=== PATIENT | male | born 1980 | race Caucasian/White ===

== ENCOUNTER 2024-12-02 14:01 | Outpatient (AMB) | payer OTHER, MEDICAID, SELFPAY ==
--- NOTE | 2024-12-02 14:04 | MHC.OFFVIS ---
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 Patient has fatigue and difficulty focusing, Long standing issue of excessive sleepiness even with adequate sleep at night. Also reports RLS with symptoms occuring two nights a week. Has had multiple sleep studies that do not show any sleep apnea, but Periodic Limb Movements were noted. Allergies No Known Allergies Allergy (Verified 12/02/24 14:15) HPI Comments Details: 44 year old male with h/o ADHD referred to us for evaluation of hypersomnia by his PCP, Dr. Waterman. He has completed 2 HSTs one in 2020 and one in 2023, both showed no evidence for PATRICA. He was diagnosed with ADD/ADHD and tried on Adderall and this was not effective, he lacks focus, lacks attention to tasks and notices low energy levels despite getting 12 hours of sleep. He goes to bed at 8pm and wakes up at 9am. PSG Aug 2023, no evidence of patrica, however he did have RLS, and PLMD, treated with gabapentin 100mg PO daily. 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 08/2024 Labs are wnl at [facility] [place], and he is not taking any otc supplements. He was tried on Dextro amphetamine 5mg/ to 15mg IR and ER both formulas, and ran out of this medication recently. He does not wish to continue this medication as he did not see any difference, he continues to lack focus, loses concentration easily and can't stay on tasks as he gets distracted easily, then starts another task but doesn't complete any of them. He also feels he is very forgetful, he walks into a room and then forgets why he walked into the room. He aslo tried Atomoxetine - Strattera, and had terrible side effects, like sweating, jittery, pre-ejaculation. He rarely has palpitations and anxiety attacks now as an adult but as a child it was terrible and he managed it with exercise and leisurely activities. He states he has experienced narcoleptic disorders about 3 weeks ago watching a basketball game at 3pm he was laying on the couch and fell asleep for 15min and this was after a nice meal. He does not drink alochol, no longer smokes tobacco, he quit in 2019, denies vaping. He does use +MJ edibles 5x a week 5-10mg, smoking one blunt 2-3 puffs and does not use it excessively. FH of t2dm grandfather maternal, heart disease grandfater maternal, alzheimer. His parents are alive and well, mom is 68year old may have early onset of dementia, not yet diagnosed. [facility] Dr. Florez, corneal cross linking, Covid x4 and asthma. [facility], [facility] Medical History (Updated 12/03/24 @ 13:17 by Latosha Celis PA-C) Internal hemorrhoid Allergic rhinitis Anxiety FHx: colonic polyps ADHD Asthma Overactive bladder Excessive daytime and night-time sleepiness PLMD (periodic limb movement disorder) Surgical History No pertinent past surgical history Family History Mother HTN (hypertension) Maternal Grandfather HTN (hypertension) Prostate cancer Leukemia Heart disease Atherosclerosis Diabetes mellitus Paternal Grandfather Prostate cancer Heart disease HTN (hypertension) Paternal Grandmother Disorder of uterus Dementia Maternal Grandmother Breast cancer Dementia Maternal Aunt Breast cancer Father HTN (hypertension) Internal hemorrhoid Family/Other Breast cancer Social History (Updated 11/29/24 @ 13:42 by ANA PAULA Segura) Household Members: None Alcohol intake: current Alcohol intake frequency: a few times a week Patient Tobacco Use Status: Former Tobacco user e-Cigarette/Vaping Use: Never Used Sexual orientation: Straight/Heterosexual Gender identity: Male Physical Exam Vital Signs: Last Vital Signs Pulse 56 12/02/24 14:05 BP 118/78 12/02/24 14:05 Pulse Ox 98 12/02/24 14:05 Oxygen Delivery Method Room Air 12/02/24 14:05 BMI result Body Mass Index 27.4 Const General: cooperative, comfortable and no acute distress Nutritional Appearance: average body habitus Orientation/consciousness: patient oriented x3 HEENT Face and sinus: Yes face symmetric Teeth and gingiva: other (mallampti score 2-3) Eyes Pupils: Equal, round and reactive pupils present Neck Neck: Yes full ROM Resp Effort & Inspection: normal respiratory effort and able to speak in complete sentences Neuro General: patient oriented x3 and moves all extremities Cranial nerves: Yes Facial sensation intact/muscles of mastication intact, Yes Equal, round and reactive pupils present, Yes Normal accommodation reflex present, Yes Normal facial strength present, Yes Midline tongue present, Yes Ability to bilaterally rotate head present and Yes Ability to bilaterally elevate shoulders present Gait exam (Neuro): Normal gait present Motor exam (neuro): 5/5 motor strength present throughout and Normal motor muscle tone present throughout Deep tendon reflexes (DTR's): Right triceps reflex intensity grade: 2+, Left triceps reflex intensity grade: 2+, Rt Biceps (C5, C6): 2+, Left biceps reflex intensity grade: 2+, Right brachioradialis reflex intensity grade: 2+, Left brachioradialis reflex intensity grade: 2+, Right patellar reflex intensity grade: 2+, Left patellar reflex intensity grade: 2+, Right ankle reflex intensity grade: 2+ and Left ankle reflex intensity grade: 2+ Psych Appearance: grossly normal Affect: Anxious affect present Attitude: cooperative Thought content: Normal thought content present Results Reviewed Results Reviewed: [facility] 08/2024 Assessment & Plan Assessment & Plan (1) Hypersomnia: Comment: HST x 2 PSG x1 and ?questionable h/o ADHD or ADD with stimulant use. Code(s): G47.10 - Hypersomnia, unspecified Category: Medical (2) ADHD: Code(s): F90.9 - Attention-deficit hyperactivity disorder, unspecified type Category: Medical Qualifiers: Attention deficit-hyperactivity disorder type: unspecified Qualified Code(s): F90.9 - Attention-deficit hyperactivity disorder, unspecified type (3) Anxious appearance: Code(s): R45.89 - Other symptoms and signs involving emotional state Category: Medical Plan Hypersomnia r/o narcolepsy with MSLT and make sure to complete urine drug test on the same day. ADHD? ADD? Psychology referral for general anxiety? Orders: Orders RT sleep testing - MSLT 12/02/24 G47.10 - Hypersomnia, unspecified Drug Screen Urine Today G47.10 - Hypersomnia, unspecified Referrals Psychology Referral F90.9 - Attention-deficit hyperactivity disorder, unspecified type, G47.10 - Hypersomnia, unspecified Patient Instructions: Sleep Hygiene provided: set a scheduled bedtime and wake time to help regulate the circadian rhythm and balance the release of pituitary hormones. Sleep in a dark room, temperatures below 68 degrees, and no devices n bed. Limit caffeinated products 6 hours prior to bed, and limit fluids 2-4 hours prior to bed. Gentle night yoga, diffusing essential oils, and playing soft music can be relaxing. Coding Level of Care Code New Pt Level 4 (78998) Diagnoses Hypersomnia G47.10 Attention deficit hyperactivity disorder (ADHD), unspecified ADHD type F90.9 Attention deficit-hyperactivity disorder type: unspecified Anxious appearance R45.89 Time Spent (min) 40 Comment Evaluation for Narcolepsy Wheaton Sleepiness Scale Questions Sitting and reading: slight chance of dozing Watching TV: high chance of dozing Sitting inactive in a theater, movie etc.: high chance of dozing As a passenger in a car for an hour without break: moderate chance of dozing Lying down in the afternoon when circumstances permit: high chance of dozing Sitting and talking to someone: slight chance of dozing Sitting quietly after lunch without alcohol: moderate chance of dozing In a car, while stopped for a few minutes in the traffic: moderate chance of dozing ESS < 10: normal, ESS > 12: pathologic: 17
[2024-12-02 14:05] VITALS: BP 118/78; PULSE 56; O2SAT 98; BMI 27.4
== END 2024-12-02 15:20 | disposition home or self-care (01) ==
LOC: HO.HSMS 14:01
PROVIDERS: PCP Nurse Practitioner; Visit Provider Physician Assistant Medical
DX: G47.10 Hypersomnia, unspecified (principal); F90.9 Attention-deficit hyperactivity disorder, unspecified type; R45.89 Other symptoms and signs involving emotional state
CPT/HCPCS: 99204

== ENCOUNTER → 2024-12-02 14:01 | Outpatient (BNVA) | payer MEDICAID, SELFPAY | PROVIDERS: PCP Nurse Practitioner; Visit Provider Physician Assistant Medical ==